=== PATIENT | male | born 2000 | race Caucasian/White ===

== ENCOUNTER 2024-06-21 09:14 | Emergency (ER) | payer OTHER, SELFPAY ==
[2024-06-21 09:27] VITALS: BP 133/66; PULSE 97; RESP 18; TEMP 36.5; O2SAT 99
--- NOTE | 2024-06-21 09:29 | ED.SKABFB ---
HPI - Skin/Abscess/Foreign Bdy General Chief complaint: Skin/Abscess/Foreign Body Stated complaint: body rash Time Seen by Provider: 06/21/24 09:29 Source: patient, RN notes reviewed and old records reviewed Mode of arrival: ambulatory Limitations: no limitations History of Present Illness HPI narrative: patient presents with complaints of itchy rash primarily to the face, hands. He reports that he was hunting over the weekend, was outdoors quite a bit. He does not believe that he was exposed to any poison taye, but cannot be certain. He does report that he has significant allergies to several trees, says that he has ended up with extensive dermatitis due to trees in the past. He reports that the rash is itchy, mostly to the face, neck, wrists. No wheezing or stridor noted. No cough. Denies any injury or trauma. Voices no other concerns or complaints at this time. Has not tried anything for his symptoms prior to arrival Related Data Allergies Allergy/AdvReac Type Severity Reaction Status Date / Time No Known Allergies Allergy Verified 06/21/24 09:20 Review of Systems Review of Systems: All systems reviewed & are unremarkable except as noted in HPI and below Constitutional: Constitutional: Reports no additional constitutional complaints ENT: Reports system reviewed and no additional complaints, except as documented Cardiovascular: Cardiovascular: Reports no additional cardiovascular complaints Respiratory: Respiratory: Reports no additional respiratory complaints Gastrointestinal: Gastrointestinal: Reports no additional gastrointestinal complaints Integumentary/Breasts: Skin/Breast: Reports pruritus and Reports rash PMFSH Comments At the time of my signature, I reviewed and agree with the nursing past medical, surgical, social, and family history. There is no relevant family history pertinent to the patient complaint. Exam Const: General: cooperative, no acute distress, alert and awake Orientation/consciousness: oriented to person, oriented to place and oriented to time HENMT: Head: normal to inspection Resp: Effort & Inspection: normal respiratory effort and able to speak in complete sentences Skin: Rashes: rashes noted ( rash consistent with contact dermatitis noted to neck, face, wrists) Neuro: General: oriented to person, oriented to place and oriented to time Cranial nerves: Yes CN's II-XII intact bilaterally Psych: Appearance: grossly normal Thought process: Normal thought process present Insight: Good insight present (Psych) Judgement: Good judgement present (Psych) Course Course Level of Care: Express Care Visit Vital Signs Vital signs: Reviewed MDM - Skin/Abscess/Foreign Bdy MDM Narrative Medical decision making narrative: patient with extensive rash noted to exposed areas, consistent with contact dermatitis. Fifteen day prednisone taper. Discharge instructions reviewed with patient, as well as provided in writing per nursing staff. The instructions also include specific and strict return/GO TO THE ER as well as f/u information. All questions have been answered, and the patient deny any further questions with discharge and discharge plan. Some parts of this dictation were generated by voice recognition software and may contain typographical and/or grammatical inaccuracies. Differential Diagnosis Differential diagnosis: Likely urticaria, allergic reaction to drug, eczema and contact dermatitis Medical Records Attestation: I reviewed the patient's medical records. Discharge Plan Discharge Clinical Impression: Allergic contact dermatitis due to plant Patient Disposition: Home, Self-Care Condition: Stable Instructions: Antibiotic Form, Contact Dermatitis (ED) Additional Instructions: take medication as prescribed. Follow with primary care provider. Emergency department for new or worse symptoms Patient Language: Swedish Prescriptions: New prednisone 10 mg tablet 10 mg PO DIRECTED Qty: 45 0RF Rx Instructions: 50 mg by mouth daily for 3 days, 40 mg by mouth daily for 3 days , 30 mg by mouth daily for 3 days, 20 mg by mouth daily for 3 days, 10 mg by mouth daily for 3 days, then stop. Follow-up/Referrals: Amanda,Flaca Parry [Other] - 2 Weeks Time of Disposition: 09:36
== END 2024-06-21 09:40 | disposition home or self-care (01) ==
PROVIDERS: Emergency Provider Nurse Practitioner Family
DX: L23.7 Allergic contact dermatitis due to plants, except food (principal); Z86.16 Personal history of COVID-19
CPT/HCPCS: 99213; G0463